=== PATIENT | female | born 1995 | race Caucasian/White ===

== ENCOUNTER 2019-06-10 13:51 | Outpatient (CLI) | payer OTHER ==
--- NOTE | 2019-06-10 15:12 | MRI ---
EXAM: RIGHT KNEE MRI WITHOUT IV CONTRAST: 06/10/19 HISTORY: Internal derangement right knee. FINDINGS: Multiplanar and multisequence MRI examination of the right knee is performed. No evidence for abnorma l joint effusion. No significant abnormal articular cartilage loss. The medial and lateral menisci, a nterior and posterior cruciate ligaments, collateral ligament complexes, and quadriceps and patellar tendons are intact. Extensor mechanism is unremarkable. No evidence for acute abnormal marrow edema. IMPRESSION: No significant acute internal derangement. POS: [facility]RE
== END 2019-06-10 13:52 | disposition home or self-care (01) ==
LOC: BICMRI 13:51
DX: M23.91 Unspecified internal derangement of right knee (principal); M25.461 Effusion, right knee